=== PATIENT | male | born 1970 | race Caucasian/White ===

== ENCOUNTER 2020-06-04 12:08 | Emergency (ER) | payer BC, SELFPAY ==
[2020-06-04] VITALS (17 sets, daily range): BP systolic 115–142; BP diastolic 53–84; PULSE 68–90; RESP 12–27; TEMP 36.6; O2SAT 91–100
--- NOTE | ~2020-06-04 | XR_ITS ---
EXAMINATION: XR chest 2V DATE: 06/04/2020 13:41 INDICATION: Shortness of breath. TECHNIQUE: Frontal and lateral views of the chest were obtained. COMPARISON: Chest 2 views 07/01, CT abdomen and pelvis 03/24/2011 FINDINGS: There is mild atelectasis in the lingula. No pleural effusion or pneumothorax. The heart si ze is normal. IMPRESSION: 1. Mild atelectasis in the lingula. Reviewed, dictated and finalized at location A.
--- NOTE | 2020-06-04 12:13 | ECG_ITS ---
Measurements Intervals [place] Rate: 88 P: 58 [place]: 137 QRS: 74 QRSD: 82 T: 63 QT: 327 QTc: 396 Interpretive Statements SINUS RHYTHM BASELINE ARTIFACT- I, AVR, AVL BORDERLINE ECG Electronically Signed On 06-04-2020 13:03:27 CDT by Ervin Bautista D.O.
[2020-06-04 12:39] LABS: Basophils Percent Auto 0.3 % (0.2-1.2); Eosinophils Percent Auto 0.1 % (0-4.4); Hematocrit 45.7 % (42.0-52.0); Hemoglobin 15.4 g/dL (14.0-18.0); Immature Granulocyte Absolute 0.04 K/mm3 (0.00-0.031); Immature Granulocyte Percent A 0.3 % (0-0.5); Lymphocytes Absolute Auto 1.56 K/mm3 (0.9-3.2); Lymphocytes Percent Auto 13.3 % (18.3-44.2); Mean Corpuscular HGB Conc 33.7 g/dl (32-36); Mean Corpuscular Hemoglobin 29.8 pg (26-34); Mean Corpuscular Volume 88.4 fl (80-100); Mean Platelet Volume 8.5 fl (7.4-10.4); Monocytes Absolute Auto 0.4 K/mm3 (0.1-0.6); Neutrophils Absolute Auto 9.7 K/mm3 (1.3-6.7); Platelet Count Result 312 k/mm3 (150-375); Red Blood Count 5.17 M/mm3 (4.6-6.20); Red Cell Distribution Width 13.5 % (11.5-14.5); White Blood Count 11.7 K/mm3 (4.5-10.0)
[2020-06-04 12:51] LABS: Alanine Aminotransferase 32 U/L (4-50); Albumin Level 4.8 g/dL (3.5-5.1); Alkaline Phosphatase 59 U/L (38-126); Anion Gap 8 mmol/L (8-16); Aspartate Amino Transferase 31 U/L (17-59); Bilirubin,Total 0.5 mg/dL (0.2-1.3); Blood Urea Nitrogen 16 mg/dL (9-20); Calcium 10.4 mg/dL (8.4-10.2); Carbon Dioxide 28 mmol/L (22-30); Chloride 104 mmol/L (98-107); Estimated CRCL calculation 89 ml/min; Estimated Glomerular Filt Rate > 60; Glucose 117 mg/dL (75-110); Potassium 4.2 mmol/L (3.4-5.0); Sodium 140 mmol/L (137-145)
[2020-06-04 13:02] LABS: Add Urine Microscopic? NO; Appearance Urine Clear (Clear); Bilirubin Urine Negative (Negative); Blood Urine Negative (Negative); Color Urine Straw (Yellow); Glucose Urine UA Negative (Negative); Ketones Urine Negative (Negative); Leukocyte Esterase Ur Negative LEU/UL (Negative); Nitrate Urine Negative (Negative); Protein Urine Negative (Negative); Specific Grav Ur 1.009 (1.001-1.035); Urobilinogen Urine Negative mg/dL (<2.0)
[2020-06-04] MEDS: MECLIZINE HCL 25 MG TABLET PO (14:09)
[2020-06-04] MEDS: SODIUM CHLORIDE 0.9% IV 1,000 ML 999 ML IV CONT (14:09)
--- NOTE | 2020-06-04 15:40 | ED.DIZZY ---
HPI - Dizziness General Chief Complaint: Dizziness Stated Complaint: numbness/tingling hands, light-headed Time Seen by Provider: 06/04/20 13:29 History of Present Illness HPI Narrative: Patient is a 50-year-old male who presents to the ER with complaints of dizziness and some tingling. Reports dizziness occurred today while he was painting bending over and getting some pain out of his pocket and then painting it up on the wall while looking up. Made him feel unsteady. He also reports tingling over the crown of his head as well as occasionally in the arms and back and legs fingers and hands. Intermittently explains intensity. Unsure aggravating alleviating factors. No focal weakness in arm or leg. No slurred speech. Patient reports he has been on a prolonged steroid taper for inflammatory condition of his eye. Is also been evaluated somewhat for the tingling by his primary care physician Dr. Antoine. Reports he has had normal blood work in the past. Also reports has been treated for hepatitis C and is concerned that his liver could be failing causing some the symptoms. Related Data Allergies Allergy/AdvReac Type Severity Reaction Status Date / Time No Known Allergies Allergy Verified 06/04/20 13:24 Review of Systems Review of Systems: All systems reviewed & are unremarkable except as noted in HPI and below Constitutional: Constitutional: Denies chills, Denies fever(s) and Denies weakness ENT: Reports dizziness, Denies nasal congestion and Denies sore throat Cardiovascular: Cardiovascular: Denies chest pain and Denies radiating jaw, neck or arm pain Respiratory: Respiratory: Denies cough, Denies dyspnea and Denies wheezing Gastrointestinal: Gastrointestinal: Denies nausea and Denies vomiting Neurologic: Denies focal weakness Comments: Tingling PMFSH Past Medical History Medical History (Updated 06/04/20 @ 15:47 by Grayson Gleason MD) Asthma 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 GERD (gastroesophageal reflux disease) Hepatitis C Hypertension Surgical History Surgical History (Updated 06/04/20 @ 15:45 by Grayson Gleason MD) History of incision and drainage Arm abscess Family History Family History (Updated 03/11/16 @ 23:21 by DOCTOR UNKNOWN) Mother Hypertension Asthma Sibling Asthma Patient's brother is in good health Father Family history of chronic obstructive pulmonary disease Social History Social History (Updated 10/22/20 @ 15:45 by Grayson Gleason MD) Alcohol intake: never Substance use type: crack/cocaine and methamphetamine Gender identity (if verbalized by the patient): Male Exam Narrative: Exam Narrative: GENERAL: Well-appearing, well-nourished, and in no acute distress. HEAD: Normocephalic, atraumatic. ENT: Mucous membranes moist. TMs normal bilaterally. CHEST: Clear to auscultation. No respiratory distress. HEART: Regular rate and rhythm. Normal peripheral pulses. ABDOMEN: Soft, nontender, nondistended. EXTREMITIES: Normal range of motion. Normal strength in upper and lower extremities. Ambulatory in the ER. SKIN: Warm, dry, no rash. NEURO: No nerves II through XII intact. No sharp touch deficit. Alert and oriented x3. Course Course Emergency Course: Patient thinks he feels modest improvement with IV fluid and meclizine. Patient reports he is being referred to stock buyer as he has been having this tingling for a while and due to the inflammatory condition of his eye and lungs. Discussed return precautions and patient verbalized understanding. Dizziness suggestive of peripheral vertigo. Diffuse paresthesias could potentially be explained to her rheumatologic work-up. Vital Signs Vital signs: Vital Signs Temperature 98 F 06/04/20 12:15 Pulse Rate 90 06/04/20 12:15 Respiratory Rate 16 06/04/20 12:15 Blood Pressure 142/73 H 06/04/20 12:15 Pulse Oximetry 98 06/04/20 12:15 Temperature 98 F 06/04/20 12:15 Pul
== END 2020-06-04 16:06 | disposition home or self-care (01) ==
PROVIDERS: Emergency Provider Emergency Medicine; PCP Emergency Medicine
DX: H81.10 Benign paroxysmal vertigo, unspecified ear (principal); R20.2 Paresthesia of skin; Z86.19 Personal history of other infectious and parasitic diseases; I10 Essential (primary) hypertension; J45.909 Unspecified asthma, uncomplicated; K21.9 Gastro-esophageal reflux disease without esophagitis; J98.4 Other disorders of lung; R94.31 Abnormal electrocardiogram [ECG] [EKG]
CPT/HCPCS: 36415; 71046; 80053; 81003; 85025; 93005; 99283; A9270; J7030

== ENCOUNTER 2020-09-01 13:56 | Outpatient (CLI) | payer BC, SELFPAY ==
--- NOTE | ~2020-09-01 | XR_ITS ---
EXAMINATION: HAND-CARLOS ENRIQUE ARTHRITIS 3+VIEWS DATE: 09/01/2020 15:06 INDICATION: Unspecified osteoarthritis. Autoimmune disorder. TECHNIQUE: Posteroanterior, lateral, and oblique views of the left and of the right hands as well as a ballcatchers view of both hands were obtained. COMPARISON: None. FINDINGS: Alignment is normal at the bilateral hands and wrists. No fractures. A few bone island at the base of the right first proximal phalanx and at the left scaphoid and capitate. Severe osteoarthritis at the right distal radioulnar joint with secondary remodeling of the sigmoid notch. Otherwise mild osteoar thritis at the right third metacarpophalangeal joint and multiple predominantly distal interphalangea l joints. No erosions to suggest an inflammatory arthritis. IMPRESSION: 1. Generally mild polyarticular osteoarthritis with more severe osteoarthritis at the right distal ra dioulnar joint suggests this may be secondary to old infection or trauma. Reviewed, dictated and finalized at location A. EY CLEANER IMPRESSION: 1. Generally mild polyarticular osteoarthritis with more severe osteoarthritis at the right distal radioulnar joint suggests this may be secondary to old infe ction or trauma.
--- NOTE | ~2020-09-01 | XR_ITS ---
EXAMINATION: XR knee LT min 4V DATE: 09/01/2020 15:06 INDICATION: Other specified abnormal immunological findings in serum. TECHNIQUE: 4 views of left knee were obtained. COMPARISON: None. FINDINGS: Bone alignment is normal. No fracture. Joint spaces are normal. No knee joint effusion. IMPRESSION: 1. No arthritis. Reviewed, dictated and finalized at location B. TRIC PILE DRIVER OPERATOR IMPRESSION: 1. No arthritis.
--- NOTE | ~2020-09-01 | XR_ITS ---
EXAMINATION:XR cervical spine 4-5V DATE: 09/01/2020 15:06 INDICATION: Neck pain with numbness and tingling radiating to the shoulders and down the arms. TECHNIQUE: AP, lateral, lateral swimmers and odontoid views of the cervical spine are provided. COMPARISON: None FINDINGS: Alignment is normal. Odontoid is intact. Normal atlantoaxial interval. Vertebral body heights are no rmal. Disc spaces are normal. No significant uncovertebral osteoarthritis. Mild multilevel cervical f acet osteoarthritis. Prevertebral soft tissues are normal. Patient is edematous. Atherosclerotic calc ification at the left carotid bulb. Visualized apices of lungs are clear. IMPRESSION: 1. Mild cervical facet osteoarthritis. Reviewed, dictated and finalized at location A. ESS STUDIES TEACHER
--- NOTE | ~2020-09-01 | XR_ITS ---
EXAMINATION: XR lumbar spine min 4V, XR sacroiliac joints min 3V ] DATE: 09/01/2020 15:06 INDICATION: Abnormal neurologic findings in the serum including positive rheumatoid factor and KATHLEEN. M ultiple joint pain and numbness and tingling extending down the legs. TECHNIQUE: 1. Anteroposterior, lateral, left and right oblique and cone-down lateral view of the lumbosacral sergio ction were obtained. 2. Frontal, left and right oblique views of the sacroiliac joints were obtained. COMPARISON: None. FINDINGS: MR spine: Alignment is normal. Vertebral body heights are normal. Mild disc height loss with small anterior end plate osteophytes at L3-L4. Additional mild disc height loss at L5-S1. Multilevel mild bilateral lumb ar facet osteoarthritis. No pars intra-articular is defects. Sacroiliac joints: Mild osteoarthritis with nonuniform joint space during at the bilateral sacral iliac joints. No subar ticular sclerosis or erosions to suggest inflammatory sacroiliitis. Right supra-acetabular bone islan d. Minimal bilateral hip osteoarthritis. IMPRESSION: 1. Mild lumbar spondylosis. 2. Mild bilateral sacroiliac osteoarthritis. No findings to suggest an inflammatory sacroiliitis. Reviewed, dictated and finalized at location A. STAMPER AND REPAIRER IMPRESSION: 1. Mild lumbar spondylosis. 2. Mild bilateral sacroiliac osteoarthritis. No findings to suggest an inflamma tory sacroiliitis.
--- NOTE | ~2020-09-01 | XR_ITS ---
EXAMINATION: XR chest 2V DATE: 09/01/2020 15:06 INDICATION: Other specified abnormal immunological findings in serum. TECHNIQUE: Frontal and lateral views of the chest were obtained. COMPARISON: Chest 2 views 06/04/2020, CT abdomen and pelvis 03/24/2011 FINDINGS: There is mild atelectasis in the lower lung zones. No pleural effusion or pneumothorax. The heart size is normal. IMPRESSION: 1. Mild atelectasis in the lower lung zones. Reviewed, dictated and finalized at location B. INSERTER
[2020-09-01 14:57] LABS: Complement C3 120 mg/dL (88-165)
[2020-09-01 16:16] LABS: Hepatitis B Surface Antigen Negative (Negative)
[2020-09-01 16:38] LABS: Hepatitis B Surface Anti Res Indeterminate; Hepatitis C Virus Antibody Reactive (Negative)
[2020-09-03 22:41] LABS: Anti Cyclic Citrullinated Pept >250 Units (<20)
[2020-09-04 18:41] LABS: Hepatitis C RNA, Quant PCR <15 IU/mL
[2020-09-05 22:23] LABS: NIL 0.02 IU/mL; Quantiferon TB Plus, 1T NEGATIVE (NEGATIVE)
[2020-09-07 19:55] LABS: Angiotensin Converting Enzyme 7 U/L (9-67)
== END 2020-09-01 13:57 | disposition home or self-care (01) ==
PROVIDERS: Visit Provider Internal Medicine
DX: H16.9 Unspecified keratitis (principal); R06.02 Shortness of breath; R76.8 Other specified abnormal immunological findings in serum; M50.30 Other cervical disc degeneration, unspecified cervical region; M47.896 Other spondylosis, lumbar region; M53.3 Sacrococcygeal disorders, not elsewhere classified; M19.041 Primary osteoarthritis, right hand; M19.042 Primary osteoarthritis, left hand; R91.8 Other nonspecific abnormal finding of lung field
CPT/HCPCS: 36415; 71046; 72050; 72110; 72202; 73130; 73564; 82164; 86160; 86200; 86480; 86706; 86803; 87340; 87522

== ENCOUNTER 2020-10-02 08:30 | Outpatient (CLI) | payer BC, SELFPAY ==
--- NOTE | ~2020-10-02 | MR_ITS ---
EXAMINATION: MR hand RT wo/w con, MR hand LT wo/w con DATE: 10/02/2020 10:51 INDICATION: Rheumatoid arthritis with rheumatoid factor TECHNIQUE: 1. Magnetic resonance imaging (MRI) of the right hand was performed without and with 19 mL Multihance intravenous contrast to include the metacarpals and digits. Sequences included axial, sagittal and c oronal T1-weighted FSE and T2-weighted FS FSE, axial T2-weighted FS FSE and postcontrast axial and co treva T2-weighted FS FSE. 2. MRI of the left hand was performed without and with 19 mL Multihance intravenous contrast to inclu de the metacarpals and digits and utilizing the same contrast bolus. Sequences included axial, sagitt al and coronal T1-weighted FSE and T2-weighted FS FSE, axial T2-weighted FS FSE and postcontrast axia l and coronal T2-weighted FS FSE. COMPARISON: None FINDINGS: The wrist and proximal carpal rows are excluded from the [id number] on both the left and right. Yobany ne alignment is normal. No fracture. There are small enhancing periarticular erosions at the radial s teddy of the head of the left third metacarpal, at the radial sides of the right second and third metac arpals and at the palmar base of the right first metacarpal. Mild osteoarthritis with small marginal osteophyte at the right first carpometacarpal joint. Remaining joint spaces appear relatively preserv ed. No joint effusions or abnormal enhancing synovitis. The flexor and extensor tendons of both hands appear normal with no tenosynovitis. Soft tissues and intrinsic musculature of the hands are unremar kable. IMPRESSION: 1. Small enhancing periarticular erosions at the heads of the left third and right second and third m etacarpals and at the base of the right first metacarpal which would be consistent with early changes of the provided history of rheumatoid arthritis. Reviewed, dictated and finalized at location A. RITY SOLUTIONS ARCHITECT IMPRESSION: 1. Small enhancing periarticular erosions at the heads of the left third and ri ght second and third metacarpals and at the base of the right first metacarpal which would be consistent with early changes of the provided history of rheumat oid arthritis.
[2020-10-02 09:40] LABS: Estimated Glomerular Filt Rate > 60
== END 2020-10-02 08:31 | disposition home or self-care (01) ==
PROVIDERS: PCP Emergency Medicine; Visit Provider Internal Medicine
DX: M05.79 Rheumatoid arthritis with rheumatoid factor of multiple sites without organ or systems involvement (principal)
CPT/HCPCS: 73220; A9577

== ENCOUNTER 2021-05-08 09:03 | Outpatient (CLI) | payer BC, SELFPAY ==
[2021-05-08 09:30] LABS: Hematocrit 42.3 % (42.0-52.0); Hemoglobin 14.2 g/dL (14.0-18.0); Mean Corpuscular HGB Conc 33.6 g/dl (32-36); Mean Corpuscular Volume 89.2 fl (80-100); Mean Platelet Volume 8.7 fl (7.4-10.4); Platelet Count Result 316 k/mm3 (150-375); Red Blood Count 4.74 M/mm3 (4.6-6.20); Red Cell Distribution Width 12.7 % (11.5-14.5); White Blood Count 8.3 K/mm3 (4.5-10.0)
[2021-05-08 09:44] LABS: Alanine Aminotransferase 36 U/L (4-50); Albumin Level 4.6 g/dL (3.5-5.1); Alkaline Phosphatase 55 U/L (38-126); Anion Gap 5 mmol/L (8-16); Aspartate Amino Transferase 34 U/L (17-59); Bilirubin,Total 0.6 mg/dL (0.2-1.3); Blood Urea Nitrogen 17 mg/dL (9-20); CRP < 0.5 mg/dL (<1.0); Calcium 9.3 mg/dL (8.4-10.2); Carbon Dioxide 30 mmol/L (22-30); Chloride 106 mmol/L (98-107); Estimated Glomerular Filt Rate > 60; Glucose 96 mg/dL (65-110); Potassium 3.7 mmol/L (3.4-5.0); Sodium 141 mmol/L (137-145)
[2021-05-08 10:21] LABS: Erythrocyte Sedimentation Rate 7 mm/hr (0-20)
== END 2021-05-08 09:04 | disposition home or self-care (01) ==
PROVIDERS: PCP Emergency Medicine; Visit Provider Internal Medicine
DX: M05.79 Rheumatoid arthritis with rheumatoid factor of multiple sites without organ or systems involvement (principal); M19.90 Unspecified osteoarthritis, unspecified site
CPT/HCPCS: 36415; 80053; 85027; 85652; 86140

== ENCOUNTER 2021-12-07 07:54 | Outpatient (CLI) | payer OTHER, SELFPAY ==
[2021-12-07 08:32] LABS: Hematocrit 41.5 % (42.0-52.0); Hemoglobin 14.2 g/dL (14.0-18.0); Mean Corpuscular HGB Conc 34.2 g/dl (32-36); Mean Corpuscular Volume 87.6 fl (80-100); Mean Platelet Volume 8.7 fl (7.4-10.4); Platelet Count Result 320 k/mm3 (150-375); Red Blood Count 4.74 M/mm3 (4.6-6.20); Red Cell Distribution Width 13.2 % (11.5-14.5); White Blood Count 8.3 K/mm3 (4.5-10.0)
[2021-12-07 08:41] LABS: Alanine Aminotransferase 36 U/L (4-50); Albumin Level 4.5 g/dL (3.5-5.1); Alkaline Phosphatase 67 U/L (38-126); Anion Gap 7 mmol/L (8-16); Aspartate Amino Transferase 39 U/L (17-59); Bilirubin,Total 0.1 mg/dL (0.2-1.3); Blood Urea Nitrogen 25 mg/dL (9-20); CRP < 0.5 mg/dL (<1.0); Calcium 8.9 mg/dL (8.4-10.2); Carbon Dioxide 28 mmol/L (22-30); Chloride 107 mmol/L (98-107); Estimated Glomerular Filt Rate > 60; Glucose 68 mg/dL (65-110); Potassium 3.6 mmol/L (3.4-5.0); Sodium 142 mmol/L (137-145)
[2021-12-09 21:21] LABS: Lupus dRVVT 1:1 Mix Interpreta Not Indicated; Lupus dRVVT Screen 33 sec (<=45); PTT-LA Screen 40 sec (<=40)
[2021-12-10 08:26] LABS: SM Antibody <1.0; SM/RNP Antibody <1.0; SS-A <1.0; SS-B <1.0
[2021-12-10 13:50] LABS: Anti Cardio Antibody IgM <2.0 MPL-U/mL (<20.0); Anti Cardiolipin Antibody IgA <2.0 APL-U/mL (<20.0); Anti Cardiolipin Antibody IgG <2.0 GPL-U/mL (<20.0)
== END 2021-12-07 07:55 | disposition home or self-care (01) ==
LOC: ANHLAB 07:59
PROVIDERS: PCP Emergency Medicine; Visit Provider Internal Medicine
DX: M19.90 Unspecified osteoarthritis, unspecified site (principal); M05.79 Rheumatoid arthritis with rheumatoid factor of multiple sites without organ or systems involvement
CPT/HCPCS: 36415; 80053; 85027; 85613; 85730; 86140; 86146; 86147; 86225; 86235

== ENCOUNTER 2022-01-01 09:40 | Outpatient (CLI) | payer OTHER, SELFPAY ==
[2022-01-01 10:21] LABS: Basophils Absolute Auto 0.1 K/mm3 (0.0-0.1); Basophils Percent Auto 0.5 % (0.2-1.2); Eosinophils Absolute Auto 0.5 K/mm3 (0-0.3); Eosinophils Percent Auto 5.1 % (0-4.4); Hematocrit 42.9 % (42.0-52.0); Hemoglobin 13.8 g/dL (14.0-18.0); Immature Granulocyte Absolute 0.04 K/mm3 (0.00-0.031); Immature Granulocyte Percent A 0.4 % (0-0.5); Lymphocytes Absolute Auto 3.14 K/mm3 (0.9-3.2); Lymphocytes Percent Auto 31.4 % (18.3-44.2); Mean Corpuscular HGB Conc 32.2 g/dl (32-36); Mean Corpuscular Hemoglobin 29.5 pg (26-34); Mean Corpuscular Volume 91.7 fl (80-100); Mean Platelet Volume 8.5 fl (7.4-10.4); Monocytes Absolute Auto 1.2 K/mm3 (0.1-0.6); Monocytes Percent Auto 11.6 % (2.6-8.5); Neutrophils Absolute Auto 5.1 K/mm3 (1.3-6.7); Platelet Count Result 325 k/mm3 (150-375); Red Blood Count 4.68 M/mm3 (4.6-6.20); Red Cell Distribution Width 13.8 % (11.5-14.5)
[2022-01-01 10:26] LABS: Add Urine Microscopic? NO; Appearance Urine Clear (Clear); Bilirubin Urine Negative (Negative); Blood Urine Negative (Negative); Color Urine Yellow (Yellow); Glucose Urine UA Negative (Negative); Ketones Urine Negative (Negative); Leukocyte Esterase Ur Negative LEU/UL (Negative); Nitrate Urine Negative (Negative); Protein Urine Negative (Negative); Specific Grav Ur 1.025 (1.001-1.035); Urobilinogen Urine 0.2 mg/dL (<2.0)
[2022-01-01 10:31] LABS: Alanine Aminotransferase 28 U/L (6-50); Albumin Level 4.4 g/dL (3.5-5.1); Alkaline Phosphatase 71 U/L (38-126); Anion Gap 7 mmol/L (8-16); Aspartate Amino Transferase 31 U/L (17-59); Bilirubin,Total < 0.1 mg/dL (0.2-1.3); Blood Urea Nitrogen 22 mg/dL (9-20); Calcium 9.2 mg/dL (8.4-10.2); Carbon Dioxide 30 mmol/L (22-30); Chloride 107 mmol/L (98-107); Estimated Glomerular Filt Rate > 60; Glucose 67 mg/dL (65-110); Sodium 144 mmol/L (137-145)
[2022-01-01 11:41] LABS: Erythrocyte Sedimentation Rate 12 mm/hr (0-20)
== END 2022-01-01 09:41 | disposition home or self-care (01) ==
LOC: ANHLAB 09:42
PROVIDERS: PCP Emergency Medicine; Visit Provider Internal Medicine
DX: M05.79 Rheumatoid arthritis with rheumatoid factor of multiple sites without organ or systems involvement (principal); Z79.899 Other long term (current) drug therapy
CPT/HCPCS: 36415; 80053; 81003; 85025; 85652

== ENCOUNTER 2022-02-10 09:40 | Outpatient (CLI) | payer OTHER, SELFPAY ==
--- NOTE | ~2022-02-10 | MR_ITS ---
EXAMINATION: MRI SACRUM W/O CONTRAST DATE: 02/10/2022 10:34 INDICATION: Rheumatoid arthritis with intermittent generalized pelvic pain TECHNIQUE: Magnetic resonance imaging (MRI) of the sacroiliac joints was performed without and with 2 0 mL Multihance intravenous contrast. Sequences included sagittal PD-weighted FSE; oblique axial T1- weighted FSE, T2-weighted FS FSE and T1-weighted FS FSE; oblique coronal T2-weighted FSE, T1-weighted FSE, T2-weighted FS FSE and postcontrast identified. T1-weighted FS FSE. COMPARISON: Sacroiliac joint radiographs dated 09/01/2020 FINDINGS: Bone alignment is normal. Mild nonuniform joint space narrowing at the bilateral sacroiliac joints wi th small regions of minimal subarticular edema along the sacral side of the anterior margin of the yuliya int spaces. No erosions or enhancing synovitis to suggest an inflammatory sacroiliitis. T1 hyperinten se hemangioma at the left posterior aspect of the S1 vertebral body. Right supra-acetabular lobe sign al intensity bone island. Marrow signal is otherwise normal. Mild facet osteoarthritis bilaterally at the lower lumbar spine. Mild disc height loss with annular fissure and small disc bulge at L3-L4. Mo derate disc height loss with annular fissure and small disc extrusion at L5-S1 which contributes to m ild to moderate bilateral neural foraminal stenosis at L5-S1. There is additional moderate bilateral neural foraminal stenosis at L4-L5. Visceral organs in the visualized portion of the pelvis are faustino l. No pathologically enlarged lymphadenopathy or abnormally enhancing lesions identified. IMPRESSION: 1. Mild bilateral sacroiliac osteoarthritis. No erosions or synovitis to suggest an inflammatory sacr oiliitis. 2. Mild to moderate lower lumbar spondylosis. Reviewed, dictated and finalized at location A. IMPRESSION: 1. Mild bilateral sacroiliac osteoarthritis. No erosions or synovitis to sugges t an inflammatory sacroiliitis. 2. Mild to moderate lower lumbar spondylosis.
[2022-02-10 10:03] LABS: Estimated Glomerular Filt Rate > 60
== END 2022-02-10 09:41 ==
PROVIDERS: PCP Emergency Medicine; Visit Provider Internal Medicine
DX: M05.79 Rheumatoid arthritis with rheumatoid factor of multiple sites without organ or systems involvement (principal); M53.3 Sacrococcygeal disorders, not elsewhere classified; M47.896 Other spondylosis, lumbar region
CPT/HCPCS: 72197; A9577

== ENCOUNTER 2022-10-02 09:29 | Emergency (ER) | payer OTHER, SELFPAY ==
--- NOTE | ~2022-10-02 | US_ITS ---
EXAMINATION:US venous doppler LE LT INDICATION:Left leg pain TECHNIQUE: Multiple grayscale, color flow and Doppler images of the left lower extremity deep venous systems were obtained and reviewed. COMPARISON:No prior studies for comparison. FINDINGS: The common femoral, superficial femoral and popliteal veins demonstrate normal respiratory variation, augmentation and compressibility. Color flow is also seen within the posterior tibial, pe roneal, greater saphenous and profunda veins. IMPRESSION: 1: No lower extremity deep venous thrombosis. Reviewed, dictated and finalized at location A. OELECTRIC PLANT MAINTAINER
[2022-10-02 10:04] VITALS: BP 169/89; PULSE 75; RESP 15; TEMP 36.5; O2SAT 95
[2022-10-02 10:22] LABS: Basophils Absolute Auto 0.1 K/mm3 (0.0-0.1); Basophils Percent Auto 0.9 % (0.2-1.2); Eosinophils Absolute Auto 0.5 K/mm3 (0-0.3); Eosinophils Percent Auto 6.2 % (0-4.4); Hematocrit 43.6 % (42.0-52.0); Hemoglobin 14.7 g/dL (14.0-18.0); Immature Granulocyte Absolute 0.05 K/mm3 (0.00-0.031); Immature Granulocyte Percent A 0.6 % (0-0.5); Lymphocytes Absolute Auto 2.85 K/mm3 (0.9-3.2); Lymphocytes Percent Auto 34.8 % (18.3-44.2); Mean Corpuscular HGB Conc 33.7 g/dl (32-36); Mean Corpuscular Hemoglobin 29.6 pg (26-34); Mean Corpuscular Volume 87.7 fl (80-100); Mean Platelet Volume 8.3 fl (7.4-10.4); Monocytes Absolute Auto 0.7 K/mm3 (0.1-0.6); Monocytes Percent Auto 8.8 % (2.6-8.5); Neutrophils Percent Auto 48.7 % (45.5-73.1); Platelet Count Result 304 k/mm3 (150-375); Red Blood Count 4.97 M/mm3 (4.6-6.20); Red Cell Distribution Width 13.5 % (11.5-14.5); White Blood Count 8.2 K/mm3 (4.5-10.0)
[2022-10-02 10:30] LABS: Alanine Aminotransferase 37 U/L (6-50); Albumin Level 4.8 g/dL (3.5-5.1); Alkaline Phosphatase 66 U/L (38-126); Anion Gap 6 mmol/L (8-16); Aspartate Amino Transferase 30 U/L (17-59); Bilirubin,Total 0.4 mg/dL (0.2-1.3); Blood Urea Nitrogen 20 mg/dL (9-20); Carbon Dioxide 29 mmol/L (22-30); Chloride 103 mmol/L (98-107); Estimated CRCL calculation 111 ml/min; Estimated Glomerular Filt Rate > 60; Glucose 102 mg/dL (65-110); Lipase 81 U/L (23-300); Potassium 3.5 mmol/L (3.4-5.0); Sodium 138 mmol/L (137-145)
--- NOTE | 2022-10-02 11:58 | ECG_ITS ---
Measurements Intervals [place] Rate: 59 P: 28 [place]: 161 QRS: 40 QRSD: 109 T: 38 QT: 426 QTc: 423 Interpretive Statements SINUS BRADYCARDIA NORMAL ECG COMPARED TO ECG 06/04/2020 12:29:14 HEART RATE HAS DECREASED Electronically Signed On 10-02-2022 14:56:37 ASSISTANT WOMEN'S SOCCER COACH by Tucker Simon M.D.
--- NOTE | 2022-10-02 12:13 | ED.GENADULT ---
HPI - General Adult General Chief complaint: Unspecified Stated complaint: pain in left thigh Time Seen by Provider: 10/02/22 11:01 Source: patient Mode of arrival: ambulatory Limitations: no limitations History of Present Illness HPI narrative: Patient is a 52 y/o male, with past medical history of rheumatoid arthritis on hydroxychloroquine, who presents to the ED with c/o L posterior thigh pain. Patient reports the pain has been ongoing for the last 5 days. He denies any injury or fall. Denies any swelling or redness of the leg. Denies previous history of DVT, no recent long distance travel. Denies any pain in the back or abdomen. Denies incontinence, numbness. Patient has not tried anything for the pain. He has an appointment with his primary care doctor tomorrow. Related Data Home Medications Medication Instructions Recorded Confirmed albuterol sulfate 90 mcg/actuation 1 inh inhalation Q4-6H PRN 09/01/20 02/21/22 breath activated powder inhaler amlodipine 10 mg-benazepril 20 mg 1 cap PO DAILY 09/01/20 02/21/22 capsule esomeprazole magnesium 40 mg 40 mg PO DAILY 09/01/20 02/21/22 capsule,delayed release levothyroxine 100 mcg capsule 100 mcg PO DAILY 09/01/20 02/21/22 modafinil 200 mg tablet 200 mg PO QAM 09/01/20 02/21/22 umeclidinium 62.5 mcg-vilanterol 1 inh inhalation DAILY 09/01/20 02/21/22 25 mcg/actuation powdr for inhalation (Anoro Ellipta) hydrochlorothiazide 25 mg tablet 25 mg PO DAILY 01/08/21 02/21/22 cyclosporine 0.05 % eye drops in a 1 drp EACH EYE Q12H 04/27/21 02/21/22 dropperette (Restasis) diclofenac sodium 50 mg 50 mg PO BID 02/21/22 02/21/22 tablet,delayed release prednisolone acetate 1 % eye 1 drp EACH EYE Q12H 02/21/22 02/21/22 drops,suspension Allergies Allergy/AdvReac Type Severity Reaction Status Date / Time No Known Allergies Allergy Verified 03/28/22 09:20 Review of Systems Review of Systems: CONSTITUTIONAL: Denies fever, chills, or sweats. CARDIOVASCULAR: Denies chest pain. RESPIRATORY: Denies dyspnea. GASTROINTESTINAL: Denies abdominal pain, nausea, vomiting, or diarrhea. GENITOURINARY: Denies incontinence, dysuria or hematuria. MUSCULOSKELETAL: See HPI. NEUROLOGIC: Denies tingling, numbness, or weakness. 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 Dry eyes GERD (gastroesophageal reflux disease) Hepatitis C Hypertension Keratitis HERNANDEZ (obstructive sleep apnea) Rheumatoid arthritis with rheumatoid factor of multiple sites without organ or systems involvement Surgical History Surgical History History of incision and drainage Arm abscess Family History Family History Mother Hypertension Asthma Sibling Asthma Patient's brother is in good health Father Family history of chronic obstructive pulmonary disease Social History Social History Smoking status: Current every day smoker Alcohol intake: never Substance use type: crack/cocaine and methamphetamine Gender identity (if verbalized by the patient): Male Exam Narrative: GENERAL: Well appearing, obese, non-toxic, in no acute distress. HEAD: Normocephalic, atraumatic. NECK: Supple. No adenopathy, no masses. RESPIRATORY: Airway patent, respirations nonlabored. Clear to auscultation bilaterally, no rales, rhonchi, wheezing. CARDIOVASCULAR: Regular rate and rhythm without murmurs, rubs, or gallops. Pedal pulses 2+ and equal bilaterally. ABDOMINAL: Soft, nontender, nondistended, no hepatosplenomegaly. Normoactive BS. MUSCULOSKELETAL: Moves all extremities. Strength/ROM intact without gross deformities. No
[2022-10-02] MEDS: KETOROLAC (*BKC) 60 MG/2 ML VIAL IM (12:29)
[2022-10-02 14:17] VITALS: BP 135/76; PULSE 80; RESP 16; O2SAT 99
== END 2022-10-02 14:20 | disposition home or self-care (01) ==
PROVIDERS: Emergency Medicine; Emergency Provider Physician Assistant; PCP Emergency Medicine
DX: M79.652 Pain in left thigh (principal); J45.909 Unspecified asthma, uncomplicated; J68.4 Chronic respiratory conditions due to chemicals, gases, fumes and vapors; I10 Essential (primary) hypertension; M05.79 Rheumatoid arthritis with rheumatoid factor of multiple sites without organ or systems involvement; K21.9 Gastro-esophageal reflux disease without esophagitis; Z86.19 Personal history of other infectious and parasitic diseases; G47.33 Obstructive sleep apnea (adult) (pediatric); F17.200 Nicotine dependence, unspecified, uncomplicated
CPT/HCPCS: 36415; 80053; 83690; 85025; 93005; 93971; 96372; 99284; J1885